=== PATIENT | male | born 1945 | race Caucasian/White ===

== ENCOUNTER 2018-08-24 11:30 | Day surgery (SDC) | payer BC ==
[~2018-08-24 11:30] MED LIST: LIDOCAINE 2% (SDV) 5 ML INJ
[2018-08-24] MEDS ORDERED: PROPOFOL 60 ML (12:56)
== END 2018-08-24 15:24 | disposition home or self-care (01) ==
LOC: GIL 11:30
DX: Z12.11 Encounter for screening for malignant neoplasm of colon (principal); K21.9 Gastro-esophageal reflux disease without esophagitis; K29.60 Other gastritis without bleeding
CPT/HCPCS: 43239; 88305